=== PATIENT | male | born 1985 | race African-American/Black ===

== ENCOUNTER 2020-02-29 04:50 | Emergency (ER) | payer SELFPAY ==
[~2020-02-29] VITALS: Ht 175.3 cm; Wt 67.8 kg
[2020-02-29] MEDS ORDERED: IBUPROFEN 600MG TABLET PO SCH (05:30)
[2020-02-29] MEDS ORDERED: BACITRACIN ZINC OINT UDPKT TOP SCH (05:30)
[2020-02-29 05:59] VITALS: BP 134/94
== END 2020-02-29 07:01 | disposition home or self-care (01) ==
LOC: ER 04:50
DX: L02.416 Cutaneous abscess of left lower limb (principal); J45.909 Unspecified asthma, uncomplicated
CPT/HCPCS: 99283